=== PATIENT | female | born 1945 | race Caucasian/White ===

== ENCOUNTER 2020-08-17 21:34 | Emergency (ER) | payer MEDICARE, SELFPAY ==
[2020-08-17 21:35] VITALS: BP 108/55; PULSE 69; RESP 16; TEMP 36.8; O2SAT 98
--- NOTE | 2020-08-17 22:34 | ED.WOUNDLAC ---
HPI - Wound/Laceration General Chief Complaint: Wound/Laceration Stated Complaint: facial laceration Time Seen by Provider: 08/17/20 21:48 History of Present Illness HPI narrative: Patient is a 75-year-old female who presents ER with right upper lip laceration. She was in her garage when she was trying momentarily lost her balance and struck a snow shovel. It fell off and hit her in the mouth. No blood thinners. Last tetanus shot was in 2010. Bleeding controlled. No injury to her teeth. No loss of consciousness. Related Data Allergies Allergy/AdvReac Type Severity Reaction Status Date / Time fesoterodine Allergy Unknown Verified 08/17/20 21:43 amoxicillin [From Augmentin] AdvReac Nausea Verified 08/17/20 21:43 clavulanic acid AdvReac Nausea Verified 08/17/20 21:43 [From Augmentin] clindamycin AdvReac Nausea Verified 08/17/20 21:43 metronidazole AdvReac Dizziness Verified 08/17/20 21:43 nitrofurantoin AdvReac Nausea Verified 08/17/20 21:43 Review of Systems Integumentary/Breasts: Skin/Breast: Denies pruritus and Denies erythema Comments: Lip laceration Neurologic: Denies syncope, Denies headache(s) and Denies numbness PMFSH Past Medical History Medical History (Updated 08/17/20 @ 22:46 by Billy Fox MD) Healthy female adult Surgical History Surgical History (Updated 08/17/20 @ 22:39 by Billy Fox MD) History of hysterectomy History of tonsillectomy Exam Narrative: Exam Narrative: GENERAL: Well-appearing, well-nourished, and in no acute distress. HEAD: Normocephalic, atraumatic. ENT: Mucous membranes moist. Normal dentition. 1.5 cm laceration to the right upper lip that spares the philtrum and spares the vermilion border. NEURO: Alert and oriented x3. PSYCH: Normal mood and affect. Course Course Emergency Course: Lac repaired. Will update tetanus and discharge. Vital Signs Vital signs: Vital Signs Temperature 98.2 F 08/17/20 21:35 Pulse Rate 69 08/17/20 21:35 Respiratory Rate 16 08/17/20 21:35 Blood Pressure 108/55 L 08/17/20 21:35 Pulse Oximetry 98 08/17/20 21:35 Temperature 98.2 F 08/17/20 21:35 Pulse Rate 69 08/17/20 21:35 Respiratory Rate 16 08/17/20 21:35 Blood Pressure 108/55 L 08/17/20 21:35 Pulse Oximetry 98 08/17/20 21:35 Procedures Laceration Laceration 1: Date: 08/17/20 Time: 22:30 Site: lip Side (If applicable): right Size (cm): 1.5 Description: linear and clean Depth: simple, single layer Local Anesthetic: lidocaine 1% Amount of anesthesia used (mL): 3 Pre-repair: irrigated extensively ====== Skin Level ====== Skin layer closed with: nylon Size (cm): 5-0 Number of sutures: 5 ====== Subcutaneous Layer ====== ====== Muscle Layer ====== ====== Tendon Layer ====== Discharge Plan Discharge Clinical Impression: Laceration Patient Disposition: Home, Self-Care Condition: Stable Instructions: Care For Your Stitches (ED), Laceration (ED) Additional Instructions: You will need your sutures removed in 5 days. Contact your primary care physician to have them removed. If they cannot remove them he may return to the ER to have them removed. If your wound becomes red and hot, is draining pus, you are having increased swelling, or you develop fever over 100.4 ?F please return to the ER for further management of your wound. Follow-up/Referrals: PHYSICIAN NOT ON STAFF,NONSTAFF [Primary Care Provider] - 1 Week
[2020-08-17] MEDS: TETANUS,DIPHTHERIA,AC PERTUSSIS ADULT (0.5 ML) BOOSTRIX IM (22:59)
== END 2020-08-17 23:01 | disposition home or self-care (01) ==
PROVIDERS: Emergency Provider Emergency Medicine
DX: S01.511A Laceration without foreign body of lip, initial encounter (principal); Z23 Encounter for immunization; W20.8XXA Other cause of strike by thrown, projected or falling object, initial encounter
CPT/HCPCS: 12011; 90471; 90715; 99282

== ENCOUNTER 2023-09-01 17:22 | Emergency (ER) | payer MEDICARE, SELFPAY ==
[2023-09-01] VITALS (7 sets, daily range): BP systolic 125–150; BP diastolic 58–102; PULSE 63–73; RESP 12–18; TEMP 36.4–36.7; O2SAT 70–100
--- NOTE | 2023-09-01 | ECG_ITS ---
Measurements Intervals [place] Rate: 64 P: 66 SD: 192 QRS: 28 QRSD: 137 T: 42 QT: 409 QTc: 424 Interpretive Statements SINUS RHYTHM INTRAVENTRICULAR CONDUCTION DELAY BORDERLINE R WAVE PROGRESSION, ANTERIOR LEADS BASELINE ARTIFACT- I, III, AVR, AVL, AVF BORDERLINE ECG NO PREVIOUS ECG AVAILABLE FOR COMPARISON Electronically Signed On 09-02-2023 12:44:36 CDT by Shane Barth D.O.
--- NOTE | ~2023-09-01 | CT_ITS ---
EXAMINATION: CT BRAIN W/O DATE: 09/01/2023 17:39 INDICATION: Right-sided numbness. TECHNIQUE: Computed tomography (CT) of the head was performed without intravenous contrast. The dose- length product was 605.33 mGy-cm. Automated exposure control and iterative reconstruction technique w ere employed. COMPARISON: No prior studies for comparison. FINDINGS: Normal brain parenchymal volume for age. Normal cardenas-white differentiation. No acute intrac ranial hemorrhage, infarction, mass or mass effect. There are scattered moderate periventricular and subcortical white matter changes, most likely related to small vessel ischemic disease (microangiopat hy). No ventriculomegaly or midline shift. Midline sagittal images demonstrate a normal corpus callosum, c raniovertebral junction and sella turcica. Basilar cisterns are patent. Paranasal sinuses and mastoids are pneumatized. No depressed skull fractures. IMPRESSION: 1. No acute intracranial abnormality. As per stroke protocol, I called these results to emergency room, discussed with Dr. Billy rivera MD at 09/01/2023 17:45 CDT. Reviewed, dictated and finalized at location A. IMPRESSION: 1. No acute intracranial abnormality. As per stroke protocol, I called these results to emergency room, discussed wit h Dr. Billy Fox MD at 09/01/2023 17:45 CDT.
--- NOTE | ~2023-09-01 | XR_ITS ---
XR chest 1V portable 09/01/2023 17:58 Indication: Neurologic symptoms Procedure: AP portable chest Comparison: 05/23/2009 Findings: Heart size normal. No focal air space disease, pulmonary edema, pleural effusion or suspect ed pneumothorax. No acute osseous abnormality. Impression: 1: No acute cardiopulmonary disease. Reviewed, dictated and finalized at location A. Impression: 1: No acute cardiopulmonary disease.
--- NOTE | ~2023-09-01 | CT_ITS ---
EXAMINATION: CTA brain carotid DATE: 09/01/2023 21:06 CDT INDICATION: Right-sided numbness TECHNIQUE: Computed tomographic angiography (CTA) of the head was performed without and with 100 mL O mnipaque-350 intravenous contrast. CTA of the neck was performed with intravenous contrast. The dose- length product was 967.38 mGy-cm. Maximum intensity projection and volume rendered 3D-reconstructions were created by the technologist on a separate workstation. COMPARISON: CT brain dated 09/01/2023. FINDINGS: HEAD CTA: The anterior, middle and posterior cerebral arteries are within normal limits without signi ficant stenosis or aneurysm. No occlusions. There is mild atherosclerosis in the cavernous sinuses. T he vertebral arteries are codominant. NECK CTA: No evidence for significant stenosis, occlusion or dissection. There is a lobulated appeara nce to the left thyroid lobe. Cannot exclude underlying mass. Consider correlation with ultrasound. T here is severe cervical spondylosis with degenerative anterolisthesis at C4-5 and retrolisthesis at C 5-6 and C6-7. There is less than 10% stenosis of the proximal right internal carotid artery relative to normal dist al artery lumen diameter (NASCET criteria). There is less than 10% stenosis of the proximal left inte rnal carotid artery relative to normal distal artery lumen diameter. IMPRESSION: 1: No significant vascular abnormality of the head or neck. Reviewed, dictated and finalized at location A.
[2023-09-01 17:30] LABS: Glucose Point of Care 118 mg/dl (65-105)
--- NOTE | 2023-09-01 17:35 | PC.NURSE ---
Pt to Triage desk, states pins and needles to right side, LKN 1530. Code stroke called, pt to stroke stop and evaluated by Dr. Fox. Pt to room [address]
--- NOTE | 2023-09-01 17:42 | ED.NEUROSD ---
HPI - Neuro Symptoms/Deficit General Chief Complaint: Neuro Symptoms/Deficit Stated Complaint: one sided pins and needles lkn 1530 Time Seen by Provider: 09/01/23 17:30 History of Present Illness HPI Narrative: patient is a 78-year-old female who presents ER with reports of stroke-like symptoms. At 3:30 p.m. she began having pins and needles in her right face, her right arm, and her right leg. Symptoms have since resolved. No focal weakness. Patient is now feeling a bit more tired than usual. No headache. No chest pain or chest pressure. Denies history of CVA previously. She is on no blood thinning medications. Related Data Allergies Allergy/AdvReac Type Severity Reaction Status Date / Time fesoterodine Allergy Unknown Verified 08/17/20 21:43 amoxicillin [From Augmentin] AdvReac Nausea Verified 08/17/20 21:43 clavulanic acid AdvReac Nausea Verified 08/17/20 21:43 [From Augmentin] clindamycin AdvReac Nausea Verified 08/17/20 21:43 metronidazole AdvReac Dizziness Verified 08/17/20 21:43 nitrofurantoin AdvReac Nausea Verified 08/17/20 21:43 Review of Systems Review of Systems: All systems reviewed & are unremarkable except as noted in HPI and below Constitutional: Constitutional: Reports no additional constitutional complaints ENT: Reports system reviewed and no additional complaints, except as documented Cardiovascular: Cardiovascular: Reports no additional cardiovascular complaints Respiratory: Respiratory: Reports no additional respiratory complaints Gastrointestinal: Gastrointestinal: Reports no additional gastrointestinal complaints Neurologic: Denies syncope, Denies headache(s), Denies focal weakness and Reports numbness PMFSH Past Medical History Medical History (Updated 09/01/23 @ 19:50 by Billy Fox MD) Healthy female adult Surgical History Surgical History (Updated 08/17/20 @ 22:39 by Billy Fox MD) History of hysterectomy History of tonsillectomy Exam Narrative: GENERAL: Well-appearing, well-nourished, and in no acute distress. HEAD: Normocephalic, atraumatic. EYES: PERRL and EOMI. ENT: Mucous membranes moist. NECK: Supple. CHEST: Clear to auscultation. No respiratory distress. HEART: Regular rate and rhythm. Normal peripheral pulses. ABDOMEN: Soft, nontender, nondistended. EXTREMITIES: Normal range of motion. No edema. SKIN: Warm, dry, no rash. NEURO: Alert and oriented x3. NIH stroke scale of 1 for mild weakness the right lower extremity that she can still lift up off the bed. PSYCH: Normal mood and affect. Course Course Emergency Course: 1822: On exam patient found to have weakness in the right lower extremity. Initially, patient reported resolution of symptoms and had never reported the weakness, she only reported numbness. Will contact [facility] Stroke team discuss possible TPA. TPA Administered? Yes, Verbal Informed Consent Obtained from: Patient Patient: Discussions to obtain informed consent for TPA included: risk of bleeding, including in the brain, that can result in ; benefit of decreased functional disability; as well as alternatives, including no treatment or conservative treatment with antiplatelet therapy [facility] Discussed with Dr. Weber with neurology. he feels patient is a candidate for tPA and though she is in a [place] area with a low NIH stroke scale. Patient will receive tPA so he has accepted patient for transfer to [facility], I have also spoken with Dr. Hewitt in the ER at [facility] who has accepted the patient. Vital Signs Vital signs: Vital Signs Temperature 98.0 F 09/01/23 18:06 Pulse Rate 70 09/01/23 18:06 Respiratory Rate 16 09/01/23 18:06 Blood Pressure 139/102 H 09/01/23 18:06 Pulse Oximetry 70 L 09/01/23 18:06 Temperature 97.6 F 09/01/23 18:11 Pulse Rate 63 09/01/23 19:02 Respiratory Rate 12 09/01/23 19:02 Blood Pressure 125/5
[2023-09-01 18:19] LABS: Basophils Absolute Auto 0.1 K/mm3 (0.0-0.1); Basophils Percent Auto 0.9 % (0.2-1.2); Eosinophils Absolute Auto 0.2 K/mm3 (0-0.3); Eosinophils Percent Auto 2.3 % (0-4.4); Hematocrit 42.2 % (37.0-47.0); Hemoglobin 14.1 g/dL (12.0-15.0); Immature Granulocyte Absolute 0.01 K/mm3 (0.00-0.031); Immature Granulocyte Percent A 0.1 % (0-0.5); Lymphocytes Absolute Auto 2.68 K/mm3 (0.9-3.2); Lymphocytes Percent Auto 38.5 % (18.3-44.2); Mean Corpuscular HGB Conc 33.4 g/dl (32-36); Mean Corpuscular Volume 92.7 fl (80-100); Mean Platelet Volume 10.9 fl (7.4-10.4); Monocytes Absolute Auto 0.7 K/mm3 (0.1-0.6); Monocytes Percent Auto 10.5 % (2.6-8.5); Neutrophils Absolute Auto 3.3 K/mm3 (1.3-6.7); Neutrophils Percent Auto 47.7 % (45.5-73.1); Platelet Count Result 273 k/mm3 (150-375); Red Blood Count 4.55 M/mm3 (4.2-5.4); Red Cell Distribution Width 12.5 % (11.5-14.5)
[2023-09-01 18:31] LABS: Alanine Aminotransferase 18 U/L (6-35); Albumin Level 4.2 g/dL (3.5-5.1); Alkaline Phosphatase 61 U/L (38-126); Anion Gap 4 mmol/L (8-16); Aspartate Amino Transferase 29 U/L (14-36); Bilirubin,Total 0.5 mg/dL (0.2-1.3); Blood Urea Nitrogen 12 mg/dL (7-17); Calcium 9.5 mg/dL (8.4-10.2); Carbon Dioxide 31 mmol/L (22-30); Chloride 104 mmol/L (98-107); Estimated CRCL calculation 63 ml/min; Estimated Glomerular Filt Rate > 60; Glucose 98 mg/dL (65-110); Potassium 3.8 mmol/L (3.4-5.0); Prothrombin Time 13.4 Seconds (11.1-14.7); Sodium 139 mmol/L (137-145)
[2023-09-01 18:40] LABS: Partial Thromboplastin Time 27.9 Seconds (22.3-36.8)
[2023-09-01 18:43] LABS: Troponin I < 0.012 ng/mL (0.000-0.034)
== END 2023-09-01 19:20 | disposition short-term general hospital (02) ==
LOC: ANHED 18:32
PROVIDERS: Emergency Provider Emergency Medicine
DX: I63.9 Cerebral infarction, unspecified (principal); R29.701 NIHSS score 1; Z90.710 Acquired absence of both cervix and uterus
CPT/HCPCS: 36415; 37195; 70450; 70496; 70498; 71045; 80053; 82948; 84484; 85025; 85610; 85730; 93005; 99285; J2997; J3101; Q9967

== ENCOUNTER 2023-12-29 18:17 | Emergency (ER) | payer MEDICARE, SELFPAY ==
--- NOTE | ~2023-12-29 | XR_ITS ---
EXAMINATION: XR chest 1V portable DATE: 12/29/2023 19:50 INDICATION: Transient ischemic attack. TECHNIQUE: A single frontal view of the chest was obtained. COMPARISON: Chest single view 09/01/2023 FINDINGS: There is no pneumonia, pleural effusion, or pneumothorax. The heart size is normal. IMPRESSION: 1. No acute cardiopulmonary disease. Reviewed, dictated and finalized at location E.
--- NOTE | ~2023-12-29 | CT_ITS ---
EXAMINATION: CT brain wo con DATE: 12/29/2023 19:57 INDICATION: Transient ischemic attack. Right-sided tingling. TECHNIQUE: Computed tomography (CT) of the head was performed without intravenous contrast. The mA wa s adjusted according to patient size. Iterative reconstruction technique was employed. The dose-lengt h product was 605.33 mGy-cm. COMPARISON: Head CT 09/01/2023 FINDINGS: There is no intracranial hemorrhage, acute infarction, or abnormal intracranial mass lesion . There are scattered areas of low attenuation in the cerebral white matter. The ventricles are rufino l in size. There are likely changes of ocular lens replacement surgeries. There is mild mucosal thick ening in the paranasal sinuses. The mastoid air cells are normal. IMPRESSION: 1. Stable extensive nonspecific cerebral white matter disease, which likely represents chronic small vessel ischemic disease. Reviewed, dictated and finalized at location E. IMPRESSION: 1. Stable extensive nonspecific cerebral white matter disease, which likely rep resents chronic small vessel ischemic disease.
[2023-12-29 18:21] VITALS: BP 133/72; PULSE 74; RESP 16; TEMP 36.6; O2SAT 99
[2023-12-29 19:17] VITALS: PULSE 64; O2SAT 100
[2023-12-29 19:21] VITALS: BP 132/55; PULSE 64; RESP 15; O2SAT 98
--- NOTE | 2023-12-29 19:40 | ECG_ITS ---
Test Date: 2023-12-29 20:39:07 Measurements Intervals [place] Rate: 56 P: 44 MT: 206 QRS: 23 QRSD: 107 T: 61 QT: 416 QTc: 403 Interpretive Statements SINUS BRADYCARDIA BORDERLINE AV CONDUCTION DELAY BASELINE ARTIFACT- I, II, AVR, AVL, AVF BORDERLINE ECG No previous ECG available for comparison Electronically Signed On 12-30-2023 06:08:13 CDT by Shane Barth D.O.
[2023-12-29 20:11] VITALS: BP 140/54; PULSE 57; RESP 12; O2SAT 98
[2023-12-29 20:18] LABS: Glucose Point of Care 108 mg/dl (65-105)
[2023-12-29 20:33] LABS: Basophils Percent Auto 0.6 % (0.2-1.2); Eosinophils Absolute Auto 0.1 K/mm3 (0-0.3); Eosinophils Percent Auto 1.9 % (0-4.4); Hematocrit 39.7 % (37.0-47.0); Hemoglobin 13.7 g/dL (12.0-15.0); Immature Granulocyte Absolute 0.01 K/mm3 (0.00-0.031); Immature Granulocyte Percent A 0.2 % (0-0.5); Lymphocytes Absolute Auto 2.29 K/mm3 (0.9-3.2); Lymphocytes Percent Auto 35.4 % (18.3-44.2); Mean Corpuscular HGB Conc 34.5 g/dl (32-36); Mean Corpuscular Hemoglobin 32.2 pg (26-34); Mean Corpuscular Volume 93.2 fl (80-100); Mean Platelet Volume 10.3 fl (7.4-10.4); Monocytes Absolute Auto 0.6 K/mm3 (0.1-0.6); Monocytes Percent Auto 9.4 % (2.6-8.5); Neutrophils Absolute Auto 3.4 K/mm3 (1.3-6.7); Neutrophils Percent Auto 52.5 % (45.5-73.1); Platelet Count Result 230 k/mm3 (150-375); Red Blood Count 4.26 M/mm3 (4.2-5.4); Red Cell Distribution Width 12.7 % (11.5-14.5); White Blood Count 6.5 K/mm3 (4.5-10.0)
--- NOTE | 2023-12-29 20:39 | ED.NEUROSD ---
HPI - Neuro Symptoms/Deficit General Chief Complaint: Neuro Symptoms/Deficit Stated Complaint: right sided tingling Time Seen by Provider: 12/29/23 19:12 History of Present Illness HPI Narrative: Patient is a 78-year-old female who presents ER with intermittent right-sided tingling ongoing for 2 days. Last a couple seconds to as long as a minute. It can occur in her right arm or hand or lower extremity. She feels the tingling within still feel sensation. No focal weakness and comes to standing/ walking / holding items. No slurred speech or facial droop. No fevers or chills or sweats. in 08/2023 patient had similar symptoms at all some bulb her face and she had right lower extremity weakness. She received tPA and went to [facility] for further treatment and evaluation. There she was diagnosed with a TIA because she had a normal MRI. Patient takes aspirin daily. Related Data Allergies Allergy/AdvReac Type Severity Reaction Status Date / Time fesoterodine Allergy Unknown Verified 12/29/23 18:20 amoxicillin [From Augmentin] AdvReac Nausea Verified 12/29/23 18:20 clavulanic acid AdvReac Nausea Verified 12/29/23 18:20 [From Augmentin] clindamycin AdvReac Nausea Verified 12/29/23 18:20 metronidazole AdvReac Dizziness Verified 12/29/23 18:20 nitrofurantoin AdvReac Nausea Verified 12/29/23 18:20 Review of Systems Review of Systems: All systems reviewed & are unremarkable except as noted in HPI and below Constitutional: Constitutional: Reports no additional constitutional complaints ENT: Reports system reviewed and no additional complaints, except as documented Cardiovascular: Cardiovascular: Reports no additional cardiovascular complaints Respiratory: Respiratory: Reports no additional respiratory complaints Musculoskeletal: Musculoskeletal: Reports no additional musculoskeletal complaints Neurologic: Denies syncope, Denies headache(s), Denies focal weakness and Reports numbness PMFSH Past Medical History Medical History (Updated 12/29/23 @ 22:23 by Billy Fox MD) Hyperlipidemia Surgical History Surgical History (Updated 08/17/20 @ 22:39 by Billy Fox MD) History of hysterectomy History of tonsillectomy Exam Narrative: GENERAL: Well-appearing, well-nourished, and in no acute distress. HEAD: Normocephalic, atraumatic. EYES: PERRL and EOMI. ENT: Mucous membranes moist. CHEST: Clear to auscultation. No respiratory distress. HEART: Regular rate and rhythm. Normal peripheral pulses. ABDOMEN: Soft, nontender, nondistended. EXTREMITIES: Normal range of motion. No edema. SKIN: Warm, dry, no rash. NEURO: No focal deficits. NIH stroke scale of 0. Alert and oriented x3. PSYCH: Normal mood and affect. Course Course Emergency Course: Patient resting comfortably. Has had intermittent tingling. She has had a CVA workup. Discussed with neurology. Recommends adding Plavix 75mg for 3-6 weeks in addition to her baby aspirin but no need for admission as patient is not wanting to stay in hospital. Vital Signs Vital signs: Vital Signs Temperature 97.9 F 12/29/23 18:21 Pulse Rate 74 12/29/23 18:21 Respiratory Rate 16 12/29/23 18:21 Blood Pressure 133/72 12/29/23 18:21 Pulse Oximetry 99 12/29/23 18:21 Temperature 97.9 F 12/29/23 18:21 Pulse Rate 59 L 12/29/23 21:53 Respiratory Rate 14 12/29/23 21:53 Blood Pressure 131/58 L 12/29/23 21:53 Pulse Oximetry 98 12/29/23 21:53 MDM - Neuro Symptoms/Deficit Lab Data 12/29/23 20:24 12/29/23 20:24 Labs: Lab Results 12/29/23 12/29/23 Range/Units 20:15 20:24 WBC 6.5 (4.5-10.0) K/mm3 RBC 4.26 (4.2-5.4) M/mm3 Hgb 13.7 (12.0-15.0) g/dL Hct 39.7 (37.0-47.0) % MCV 93.2 (80-100) fl MCH 32.2 (26-34) pg MCHC 34.5 (32-36) g/dl RDW 12.7 (11.5-14.5) % Plt Count 230 (150-375) k/mm3 MPV 10.3 (7.4-10.4) fl Immature Gra
[2023-12-29 20:43] LABS: Alanine Aminotransferase 22 U/L (6-35); Albumin Level 4.1 g/dL (3.5-5.1); Alkaline Phosphatase 44 U/L (38-126); Anion Gap 7 mmol/L (4-12); Aspartate Amino Transferase 37 U/L (14-36); Bilirubin,Total 0.6 mg/dL (0.2-1.3); Blood Urea Nitrogen 12 mg/dL (7-17); Calcium 9.3 mg/dL (8.4-10.2); Carbon Dioxide 31 mmol/L (22-30); Chloride 102 mmol/L (98-107); Estimated CRCL calculation 60 ml/min; Estimated Glomerular Filt Rate > 60; Glucose 107 mg/dL (65-110); Potassium 3.9 mmol/L (3.4-5.0); Sodium 140 mmol/L (137-145)
[2023-12-29 20:49] LABS: Partial Thromboplastin Time 24.6 Seconds (22.3-36.8)
[2023-12-29 20:55] LABS: Troponin I < 0.012 ng/mL (0.000-0.034)
[2023-12-29] MEDS: KETOROLAC 15 MG/ML VIAL (*BKC) IV PUSH (20:55)
[2023-12-29 21:53] VITALS: BP 131/58; PULSE 59; RESP 14; O2SAT 98
== END 2023-12-29 22:45 | disposition home or self-care (01) ==
PROVIDERS: Emergency Provider Emergency Medicine
DX: R20.0 Anesthesia of skin (principal); R20.2 Paresthesia of skin; E78.5 Hyperlipidemia, unspecified; Z86.73 Personal history of transient ischemic attack (TIA), and cerebral infarction without residual deficits
CPT/HCPCS: 36415; 70450; 71045; 80053; 82948; 84484; 85025; 85610; 85730; 93005; 96374; 99284; J1885